=== PATIENT | female | born 1955 | race Caucasian/White ===

== ENCOUNTER 2024-05-23 17:14 | Emergency (ER) | payer MEDICARE | END 2024-05-23 18:00 | disposition home or self-care (01) | LOC: BURERS 17:14 | DX: S62.615A Displaced fracture of proximal phalanx of left ring finger, initial encounter for closed fracture (principal); W19.XXXA Unspecified fall, initial encounter | CPT/HCPCS: 99283 ==

== ENCOUNTER 2024-07-04 13:27 | Emergency (ER) | payer MEDICARE, OTHER | END 2024-07-04 14:14 | disposition home or self-care (01) | LOC: BURERS 13:27 | DX: S20.211A Contusion of right front wall of thorax, initial encounter (principal); W01.0XXA Fall on same level from slipping, tripping and stumbling without subsequent striking against object, initial encounter; Y93.01 Activity, walking, marching and hiking | CPT/HCPCS: 71250 ==